=== PATIENT | male | born 1930 | race Caucasian/White ===

== ENCOUNTER 2016-12-12 11:50 | Inpatient (IN) | payer OTHER ==
[~2016-12-12] VITALS: Ht 170.2 cm; Wt 69.5 kg
[~2016-12-12 11:50] MED LIST: APAP500 PO; ARICEPT10 MG PO; CEFTIN500 MG PO; CICLODAN6.6 ML; EXELON 9.5 MG9.5 MG TOP; FLOMAX0.4 MG PO; FLORANEX PACKET1 GM PO; ORADENT 0.1% DEN5 G1; OXYBUTYNIN 5 MG5 M1 PO
[2016-12-12 11:51] VITALS: BP 174/81
[2016-12-12] MEDS ORDERED: MIRALAX17 GM PO (12:02)
[2016-12-12] MEDS ORDERED: ZOLOFT25 MG PO (12:03)
[2016-12-12] MEDS ORDERED: SEROQUEL 25 MG25 M1 PO (12:03)
[2016-12-12] MEDS ORDERED: LOPERAMIDE 2 MG2 M1 PO (12:04)
[2016-12-12] MEDS ORDERED: ONDANSETRON HCL4 M2 PO (12:05)
[2016-12-12] MEDS ORDERED: ATIVAN0.5 MG PO (12:05)
[2016-12-12] MEDS ORDERED: ULTRAM 50MG TAB50 MG PO (12:06)
[2016-12-12 12:32] LABS: HEMATOCRIT 37.8 % (42.0-52.0); HEMOGLOBIN 12.9 gm/dL (14.0-18.0); MCH 31.5 pg (26.0-34.0); MCHC 34.1 g/dL (28.0-37.0); MCV 92.2 fL (80.0-100.0); PLATELET COUNT 120 thou/uL (150-400); RBC 4.09 mil/uL (4.50-6.00); RDW 13.2 % (10.5-14.5); WBC 4.9 thou/uL (4.0-11.0)
[2016-12-12 12:35] LABS: MANUAL DIFF YES
[2016-12-12 12:49] LABS: ALBUMIN 3.4 g/dL (3.4-5.0); CALCIUM 8.7 mg/dL (8.5-10.1); CREATININE 0.9 mg/dL (0.7-1.3); TOTAL BILIRUBIN 2.2 mg/dL (<0.1-1.0); TOTAL PROTEIN 7.1 g/dL (6.4-8.2)
[2016-12-12 13:16] LABS: POTASSIUM 3.7 mmol/L (3.5-5.1)
[2016-12-12 13:48] LABS: ABSOLUTE NEUTROPHILS 4.8 thou/uL (1.4-8.2); TOTAL CELL COUNT 100
[2016-12-12 14:34] LABS: URINE BILIRUBIN NEGATIVE (Negative); URINE BLOOD NEGATIVE (Negative); URINE COLOR YELLOW; URINE GLUCOSE-RANDOM* NEGATIVE (Negative); URINE KETONES NEGATIVE (Negative); URINE LEUKOCYTES-REFLEX NEGATIVE (Negative); URINE PROTEIN (DIPSTICK) NEGATIVE (Negative); URINE SPECIFIC GRAVITY 1.015 (1.003-1.035); URINE UROBILINOGEN 0.2 E.U./dl (0.2-1.0)
[2016-12-12 14:46] VITALS: BP 109/69
[2016-12-12 22:45] VITALS: BP 125/60
[2016-12-13 03:19] LABS: GLYCOHEMOGLOBIN (HGB A1C) 5.1 % (4.8-5.6)
[2016-12-13 05:09] LABS: ALBUMIN 2.5 g/dL (3.4-5.0); CALCIUM 7.9 mg/dL (8.5-10.1); POTASSIUM 4.1 mmol/L (3.5-5.1); TOTAL BILIRUBIN 1.1 mg/dL (<0.1-1.0); TOTAL PROTEIN 5.8 g/dL (6.4-8.2)
[2016-12-13 07:34] VITALS: BP 146/80
[2016-12-13 16:20] VITALS: BP 125/62
[2016-12-13 20:30] VITALS: BP 125/54
[2016-12-14 02:07] LABS: HEMATOCRIT 33.2 % (42.0-52.0); HEMOGLOBIN 11.3 gm/dL (14.0-18.0); MCH 31.8 pg (26.0-34.0); MCV 93.5 fL (80.0-100.0); PLATELET COUNT 88 thou/uL (150-400); RBC 3.55 mil/uL (4.50-6.00); RDW 13.6 % (10.5-14.5); WBC 6.3 thou/uL (4.0-11.0)
[2016-12-14 02:15] VITALS: BP 147/78
[2016-12-14 02:32] LABS: MANUAL DIFF YES
[2016-12-14 06:41] LABS: ABSOLUTE NEUTROPHILS 5.2 thou/uL (1.4-8.2); ANISOCYTOSIS 1+; ATYPICAL LYMPHS 2 %; POIKILOCYTOSIS SLIGHT; TOTAL CELL COUNT 100
[2016-12-14 07:12] VITALS: BP 118/65
[2016-12-14 15:31] VITALS: BP 168/77
[2016-12-15 04:00] VITALS: BP 177/88
[2016-12-15 09:03] VITALS: BP 151/69
[2016-12-15 16:55] VITALS: BP 127/65
[2016-12-15 19:30] VITALS: BP 123/53
[2016-12-16 04:17] VITALS: BP 175/87
[2016-12-16 05:55] LABS: HEMATOCRIT 33.5 % (42.0-52.0); HEMOGLOBIN 11.7 gm/dL (14.0-18.0); MCH 31.8 pg (26.0-34.0); MCHC 34.9 g/dL (28.0-37.0); RBC 3.68 mil/uL (4.50-6.00); RDW 13.3 % (10.5-14.5)
[2016-12-16 06:10] LABS: CALCIUM 8.4 mg/dL (8.5-10.1); POTASSIUM 3.7 mmol/L (3.5-5.1)
[2016-12-16 07:49] VITALS: BP 157/86
[2016-12-16] MEDS ORDERED: AUGMENTIN 875875 MG PO (10:21)
[2016-12-16 15:43] VITALS: BP 130/65
[2016-12-16 19:21] VITALS: BP 131/66
[2016-12-17 04:00] VITALS: BP 151/69
[2016-12-17 07:25] VITALS: BP 152/79
== END 2016-12-17 11:55 | DRG 871 ==
LOC: ER 11:50 → EROBS 13:39 → 5S 14:01
PROVIDERS: Emergency Medicine; Family Medicine; Nurse Practitioner; Specialist
DX: A41.9 Sepsis, unspecified organism (principal); J96.01 Acute respiratory failure with hypoxia; J18.9 Pneumonia, unspecified organism; G93.41 Metabolic encephalopathy; K57.32 Diverticulitis of large intestine without perforation or abscess without bleeding; F03.90 Unspecified dementia, unspecified severity, without behavioral disturbance, psychotic disturbance, mood disturbance, and anxiety; K59.00 Constipation, unspecified; Z66 Do not resuscitate; R73.9 Hyperglycemia, unspecified; R19.7 Diarrhea, unspecified; Z86.73 Personal history of transient ischemic attack (TIA), and cerebral infarction without residual deficits; Z98.49 Cataract extraction status, unspecified eye; Z79.899 Other long term (current) drug therapy
CPT/HCPCS: 10785

== ENCOUNTER 2017-07-17 12:40 | Inpatient (IN) | payer OTHER ==
[~2017-07-17] VITALS: Ht 177.8 cm; Wt 58.3 kg
--- NOTE | ~2017-07-17 | EKG ---
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: [facility] : 1930 Requested By: Gael Bills Order Number: [id number] MD: Richard Alejandre Measurements Intervals [place] Rate: 112 P: 34 MA: 121 QRS: -65 QRSD: 129 T: 52 QT: 340 QTc: 464 Interpretive Statements Sinus tachycardia RBBB and LAFB Compared to ECG 03/03/2016 20:26:00 Left anterior fascicular block now present Right bundle-branch block now present heart rate has increased Electronically Signed On 07-17-2017 17:03:28 [employer] by Richard Alejandre [email or web address] <ELECTRONICALLY SIGNED> By: Richard Alejandre MD, [facility] 07/17/17 1703 1337 [id number] Richard Alejandre MD, [facility] /EPI
[~2017-07-17 12:40] MED LIST changes: +ATIVAN0.5 MG PO; +AUGMENTIN 875875 MG PO; +LOPERAMIDE 2 MG2 M1 PO; +MIRALAX17 GM PO; +ONDANSETRON HCL4 M2 PO; +SEROQUEL 25 MG25 M1 PO; +ULTRAM 50MG TAB50 MG PO; +ZOLOFT25 MG PO
[2017-07-17 12:41] VITALS: BP 133/65
[2017-07-17 13:05] LABS: BE(vivo) -3.4 mmol/L (-2 to +3); HCO3 20.4 mmol/L (22.0-26.0); PCO2 33.3 mmHg (35.0-45.0); PO2 66.8 mmHg (80.0-100.0); pH 7.406 (7.360-7.450); sO2 93.6 % (92.0-98.0)
[2017-07-17 13:24] LABS: ABSOLUTE NEUTROPHILS 15.1 thou/uL (1.4-8.2); BASOPHILS 0.3 % (0.0-2.0); EOSINOPHILS 0.1 % (0.0-3.0); HEMATOCRIT 40.7 % (42.0-52.0); HEMOGLOBIN 13.7 gm/dL (14.0-18.0); LYMPHOCYTES 1.3 % (24.0-44.0); MCH 31.3 pg (26.0-34.0); MCHC 33.5 g/dL (28.0-37.0); MCV 93.4 fL (80.0-100.0); PLATELET COUNT 252 thou/uL (150-400); POLYS 95.3 % (36.0-66.0); RBC 4.36 mil/uL (4.50-6.00); RDW 13.3 % (10.5-14.5); WBC 15.9 thou/uL (4.0-11.0)
[2017-07-17 13:33] LABS: ANION GAP 10 mmol/L (7-16); BUN 21 mg/dL (7-18); CALCIUM 8.7 mg/dL (8.5-10.1); CHLORIDE 104 mmol/L (98-107); CO2 26 mmol/L (21-32); GLUCOSE 169 mg/dL (74-106); POTASSIUM 4.4 mmol/L (3.5-5.1); SODIUM 140 mmol/L (136-145)
[2017-07-17 13:41] LABS: LIPASE 141 U/L (73-393); MAGNESIUM 1.7 mg/dL (1.8-2.4); SGOT 14 U/L (15-37); SGPT 21 U/L (30-65); TOTAL BILIRUBIN 1.1 mg/dL (<0.1-1.0); TROPONIN-I < 0.04 ng/mL (<0.06)
[2017-07-17] MEDS ORDERED: TRAZODONE HCL50 MG PO (14:25)
[2017-07-17 14:33] VITALS: BP 131/66
[2017-07-17 15:12] VITALS: BP 130/60
[2017-07-17 15:55] VITALS: BP 101/55
[2017-07-17 19:29] VITALS: BP 116/53
[2017-07-18] VITALS: BP 130/101
[2017-07-18 00:10] VITALS: BP 85/52
[2017-07-18 04:23] VITALS: BP 105/67
[2017-07-18 06:42] LABS: HEMATOCRIT 30.9 % (42.0-52.0); MCH 31.7 pg (26.0-34.0); MCHC 33.6 g/dL (28.0-37.0); MCV 94.3 fL (80.0-100.0); RBC 3.28 mil/uL (4.50-6.00); RDW 13.2 % (10.5-14.5)
[2017-07-18 06:50] LABS: CALCIUM 8.3 mg/dL (8.5-10.1); CREATININE 0.9 mg/dL (0.7-1.3); MAGNESIUM 1.9 mg/dL (1.8-2.4); POTASSIUM 3.9 mmol/L (3.5-5.1)
[2017-07-18 06:52] LABS: HEMOGLOBIN 10.4 gm/dL (14.0-18.0)
[2017-07-18 19:50] VITALS: BP 118/65
[2017-07-18 20:02] VITALS: BP 118/65
[2017-07-19 04:35] VITALS: BP 115/63
[2017-07-19 07:57] VITALS: BP 131/71
[2017-07-19 12:00] VITALS: BP 128/74
[2017-07-19 15:22] VITALS: BP 137/63
[2017-07-19 19:21] VITALS: BP 156/79
[2017-07-19 19:46] LABS: HEMATOCRIT 36.1 % (42.0-52.0); HEMOGLOBIN 12.3 gm/dL (14.0-18.0); MCH 31.8 pg (26.0-34.0); MCV 93.5 fL (80.0-100.0); RBC 3.86 mil/uL (4.50-6.00); RDW 12.9 % (10.5-14.5); WBC 10.6 thou/uL (4.0-11.0)
[2017-07-19 20:01] LABS: CALCIUM 8.4 mg/dL (8.5-10.1); CREATININE 0.7 mg/dL (0.7-1.3); MAGNESIUM 1.7 mg/dL (1.8-2.4); POTASSIUM 3.3 mmol/L (3.5-5.1)
[2017-07-20 04:27] VITALS: BP 129/71
[2017-07-20 06:02] LABS: HEMATOCRIT 29.7 % (42.0-52.0); HEMOGLOBIN 10.2 gm/dL (14.0-18.0); MCH 31.7 pg (26.0-34.0); MCHC 34.4 g/dL (28.0-37.0); RBC 3.23 mil/uL (4.50-6.00); RDW 12.9 % (10.5-14.5); WBC 6.7 thou/uL (4.0-11.0)
[2017-07-20 06:10] LABS: CALCIUM 8.4 mg/dL (8.5-10.1); CREATININE 0.7 mg/dL (0.7-1.3); MAGNESIUM 1.7 mg/dL (1.8-2.4); POTASSIUM 3.4 mmol/L (3.5-5.1)
[2017-07-20 11:55] VITALS: BP 121/53
[2017-07-20 16:45] VITALS: BP 120/55
[2017-07-20 19:26] VITALS: BP 135/74
[2017-07-21 04:18] VITALS: BP 137/64
[2017-07-21 06:45] LABS: HEMOGLOBIN 10.3 gm/dL (14.0-18.0); MCH 31.8 pg (26.0-34.0); MCHC 34.5 g/dL (28.0-37.0); MCV 92.3 fL (80.0-100.0); RBC 3.25 mil/uL (4.50-6.00); RDW 12.9 % (10.5-14.5); WBC 5.3 thou/uL (4.0-11.0)
[2017-07-21 07:07] LABS: CALCIUM 8.3 mg/dL (8.5-10.1); CREATININE 0.7 mg/dL (0.7-1.3); MAGNESIUM 1.7 mg/dL (1.8-2.4); POTASSIUM 3.4 mmol/L (3.5-5.1)
[2017-07-21 07:30] VITALS: BP 139/64
[2017-07-21] MEDS ORDERED: AUGMENTIN 875-1 EACH PO (10:51)
[2017-07-21 11:22] VITALS: BP 158/135
[2017-07-21 11:28] VITALS: BP 103/44
[2017-07-22 03:06] LABS: ADENOVIRUS Negative (Negative); INFLUENZA A Negative (Negative); INFLUENZA B Negative (Negative); METAPNEUMOVIRUS Negative (Negative); PARAINFLUENZA 1 Negative (Negative); PARAINFLUENZA 2 Negative (Negative); PARAINFLUENZA 3 Negative (Negative); RHINOVIRUS Negative (Negative); RSV A Negative (Negative); RSV B Negative (Negative)
== END 2017-07-21 14:15 | DRG 871 ==
LOC: ER 12:40 → EROBS 14:09 → 2N 14:09
PROVIDERS: Emergency Medicine; Internal Medicine
DX: A41.9 Sepsis, unspecified organism (principal); J18.9 Pneumonia, unspecified organism; G30.9 Alzheimer's disease, unspecified; N40.0 Benign prostatic hyperplasia without lower urinary tract symptoms; Z66 Do not resuscitate; F02.80 Dementia in other diseases classified elsewhere, unspecified severity, without behavioral disturbance, psychotic disturbance, mood disturbance, and anxiety; E86.0 Dehydration; Z86.73 Personal history of transient ischemic attack (TIA), and cerebral infarction without residual deficits; Z79.899 Other long term (current) drug therapy
CPT/HCPCS: 10081

== ENCOUNTER 2017-07-25 13:32 | Emergency (ER) | payer OTHER ==
[~2017-07-25] VITALS: Ht 182.9 cm; Wt 63.5 kg
[~2017-07-25 13:32] MED LIST changes: +AUGMENTIN 875-1 EACH PO; +TRAZODONE HCL50 MG PO
[2017-07-25 14:14] LABS: CALCIUM 9.2 mg/dL (8.5-10.1); CREATININE 0.9 mg/dL (0.7-1.3)
[2017-07-25 14:15] LABS: POTASSIUM 4.1 mmol/L (3.5-5.1)
[2017-07-25 15:00] LABS: ABSOLUTE NEUTROPHILS 7.2 thou/uL (1.4-8.2); BASOPHILS 0.4 % (0.0-2.0); EOSINOPHILS 1.2 % (0.0-3.0); HEMATOCRIT 38.9 % (42.0-52.0); HEMOGLOBIN 13.2 gm/dL (14.0-18.0); LYMPHOCYTES 7.6 % (24.0-44.0); MCH 31.3 pg (26.0-34.0); MONOCYTES 8.6 % (1.0-8.0); PLATELET COUNT 260 thou/uL (150-400); POLYS 82.2 % (36.0-66.0); RBC 4.22 mil/uL (4.50-6.00); RDW 13.1 % (10.5-14.5); WBC 8.8 thou/uL (4.0-11.0)
[2017-07-25 15:50] LABS: URINE BILIRUBIN NEGATIVE (Negative); URINE BLOOD NEGATIVE (Negative); URINE CLARITY CLEAR; URINE COLOR YELLOW; URINE GLUCOSE-RANDOM* NEGATIVE (Negative); URINE KETONES TRACE (Negative); URINE LEUKOCYTES-REFLEX NEGATIVE (Negative); URINE NITRITE-REFLEX NEGATIVE (Negative); URINE PROTEIN (DIPSTICK) NEGATIVE (Negative); URINE SPECIFIC GRAVITY 1.025 (1.005-1.035); URINE UROBILINOGEN 0.2 E.U./dl (0.2-1.0)
[2017-07-25 16:00] VITALS: BP 135/72
== END 2017-07-25 16:30 | disposition home or self-care (01) ==
LOC: ER 13:32
PROVIDERS: Emergency Medicine
DX: R41.82 Altered mental status, unspecified (principal); R53.1 Weakness; F03.90 Unspecified dementia, unspecified severity, without behavioral disturbance, psychotic disturbance, mood disturbance, and anxiety